=== PATIENT | male | born 2000 | race African-American/Black ===

== ENCOUNTER 2018-01-23 13:15 | Emergency (ER) | payer OTHER, BC | END 2018-01-23 16:01 | disposition home or self-care (01) | LOC: ER 13:15 | DX: M54.5 Low back pain (principal); M54.2 Cervicalgia; V43.52XA Car driver injured in collision with other type car in traffic accident, initial encounter; Y93.89 Activity, other specified; Y92.488 Other paved roadways as the place of occurrence of the external cause; Y99.8 Other external cause status | CPT/HCPCS: 99283 ==

== ENCOUNTER 2018-11-28 08:17 | Emergency (ER) | payer BC, OTHER ==
[~2018-11-28] VITALS: Ht 182.9 cm; Wt 125.6 kg
[~2018-11-28 08:17] MED LIST: CYCL10TA2 PO; IBUP-1007 PO
[2018-11-28 08:26] VITALS: BP 158/85
[2018-11-28] MEDS ORDERED: LIDOCAINE WITH 8.4% SOD BICARB 3 ML DISP.SYRIN. INJ ONE (08:30)
[2018-11-28] MEDS ORDERED: DIPHTH,PERTUSS(ACELL),TET TOX 0.5 ML DISP.SYRIN. VAX IM ONE (08:45)
--- NOTE | 2018-11-28 09:05 | PHYS DOC ---
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 Patient is left-handed. Review of Systems Review of Systems Constitutional: Denies fever or chills [] Musculoskeletal: Denies back pain or joint pain [] Integument: right index finger laceration Neurologic: Denies headache, focal weakness or sensory changes [] All other systems were reviewed and found to be within normal limits, except as documented in this note. Current Medications Current Medications Current Medications Medications (Trade) Dose Ordered Sig/Charlie Start Time Stop Time Status Last Admin Dose Admin Diphtheria/ Tetanus/Acell Pertussis (Boostrix) 0.5 ml ONCE ONCE 11/28/18 08:45 11/28/18 08:46 DC Lidocaine/Sodium Bicarbonate (Buffered Lidocaine 1%) 3 ml 1X ONCE 11/28/18 08:30 11/28/18 08:31 DC 11/28/18 08:35 3 ML Allergies Allergies Allergies Coded Allergies Type Severity Reaction Last Updated Verified No Known Drug Allergies 01/23/18 No Physical Exam Physical Exam Constitutional: Well developed, well nourished, no acute distress, non-toxic appearance. [] Skin: Right index finger fingertip medial aspect with a C-shape laceration approx. 2 cm laceration is still bleeding. There is no obvious tendon involvem ent. Full range of motion to the right index finger. Adequate radius sensation to the right index finger. +2 right radial pulse. Cap refill less than 2 seconds the right index finger. Back: No tenderness, no CVA tenderness. [] Extremities: No tenderness, no cyanosis, no clubbing, ROM intact, no edema. [] Neurologic: Alert and oriented X 3, normal motor function, normal sensory function, no focal deficits noted. [] Psychologic: Affect normal, judgement normal, mood normal. [] Current Patient Data Vital Signs Vital Signs Date Time Temp Pulse Resp B/P (MAP) Pulse Ox O2 Delivery O2 Flow Rate FiO2 11/28/18 08:26 98.8 88 18 158/85 (109) 100 Room Air 98.8 EKG EKG [] Radiology/Procedures Radiology/Procedures Laceration/Wound Repair Wound Location: Right index finger Wound's Depth, Shape: C Wound Length (cm): Approximately 2 cm Wound Explored: clean Irrigated w/ Saline (ccs): 100 Betadine Prep?: Yes Anesthesia: 1% buffered lidocaine Volume Anesthetic (ccs): Approximately 2 cm Wound Repaired With: Ethilon Suture Size/Type: 5.0/interrupted sutures Number of Sutures: 7 Progress :[Wound was covered with nonstick dressing Course & Med Decision Making Course & Med Decision Making Pertinent Labs and Imaging studies reviewed. (See chart for details) This is a 18-year-old male patient who parents right index finger laceration was closed by me as noted in procedures. Wound care instructions and return precautions provided. Tetanus updated. Dragon Disclaimer Dragon Disclaimer This electronic medical record was generated, in whole or in part, using a voice recognition dictation system. Departure Departure Impression: Primary Impression: Laceration of index finger Disposition: 01 HOME, SELF-CARE Condition: STABLE Referrals: NO PCP (PCP) Follow-up with the ER in 7-10 days for suture removal Patient Instructions: Fingertip Laceration Additional Instructions: you have right index finger laceration that was closed with stitches. Keep the area clean and dry. You can wash her hands. Apply Neosporin to the laceration site twice a day for 7 days. Follow-up with your own doctor or the emergency room in 7-10 days for stitches removal. Monitor the area for any signs of infection including but not limited to increased redness to the area, yellow drainage, odorous drainage from the area and return to the ED or see your doctor if they occur Problem Qualifiers Primary Impression: Laceration of index finger Encounter type: initial encounter Damage to nail status: without damage Foreign body presence: without foreign body Laterality: right Qualified Codes: S61.210A - Laceration without foreign body of right index finger without damage to nail, initial encounter JAMIE TALLEY APRN Nov 28, 2018 09:04
== END 2018-11-28 09:10 | disposition home or self-care (01) ==
LOC: ER 08:17
DX: S61.210A Laceration without foreign body of right index finger without damage to nail, initial encounter (principal); W26.8XXA Contact with other sharp object(s), not elsewhere classified, initial encounter; Y93.89 Activity, other specified; Y92.89 Other specified places as the place of occurrence of the external cause; Y99.0 Civilian activity done for income or pay
CPT/HCPCS: 12001; 90471; 90715; 99283

== ENCOUNTER 2018-12-06 06:20 | Emergency (ER) | payer BC ==
[~2018-12-06] VITALS: Ht 182.9 cm; Wt 125.6 kg
[2018-12-06 06:37] VITALS: BP 169/103
--- NOTE | 2018-12-06 06:46 | PHYS DOC ---
Past Medical History Past Medical History: No Pertinent History Past Surgical History: No Surgical History Alcohol Use: Rarely Drug Use: None Adult General Chief Complaint Chief Complaint: SUTURE/STAPLE REMOVAL HPI HPI Patient is a 18 year old right-handed male who presents for suture removal. Patient had laceration of right index finger on November 28 and treated with 7 sutures in this emergency room. Patient denies pain, fever and chills, drainage of wound. Review of Systems Review of Systems Constitutional: Denies fever or chills [] Eyes: Denies change in visual acuity, redness, or eye pain [] HENT: Denies nasal congestion or sore throat [] Respiratory: Denies cough or shortness of breath [] Cardiovascular: No additional information not addressed in HPI [] GI: Denies abdominal pain, nausea, vomiting, bloody stools or diarrhea [] : Denies dysuria or hematuria [] Musculoskeletal: Denies back pain or joint pain [] Integument: Denies rash or skin lesions [] Neurologic: Denies headache, focal weakness or sensory changes [] Endocrine: Denies polyuria or polydipsia [] All other systems were reviewed and found to be within normal limits, except as documented in this note. Allergies Allergies Allergies Coded Allergies Type Severity Reaction Last Updated Verified No Known Drug Allergies 01/23/18 No Physical Exam Physical Exam Constitutional: Well developed, well nourished, no acute distress, non-toxic appearance. [] HENT: Normocephalic, atraumatic. Eyes: PERRLA, EOMI, conjunctiva normal, no discharge. [] Neck: Normal range of motion, no tenderness, supple, no stridor. [] Cardiovascular:Heart rate regular rhythm, no murmur [] Lungs & Thorax: Bilateral breath sounds clear to auscultation [] Extremities: Right index finger with well healed wound of tip finger without sign of infection, no tenderness, no cyanosis, no clubbing, ROM intact, no e avinash. [] Neurologic: Alert and oriented X 3, normal motor function, normal sensory function, no focal deficits noted. [] Psychologic: Affect normal, judgement normal, mood normal. [] Current Patient Data Vital Signs Vital Signs Date Time Temp Pulse Resp B/P (MAP) Pulse Ox O2 Delivery O2 Flow Rate FiO2 12/06/18 06:37 98.8 66 16 100 Room Air 98.8 EKG EKG [] Radiology/Procedures Radiology/Procedures [] Course & Med Decision Making Course & Med Decision Making Evaluation of patient in ER showed 18-year-old male patient presented to ER for suture removal of right index finger that was placed on November 28 in this emergency room. 7 stitches was removed by RAGMAN without problem. Dragon Disclaimer Dragon Disclaimer This electronic medical record was generated, in whole or in part, using a voice recognition dictation system. Departure Departure Impression: Primary Impression: Encounter for removal of sutures Disposition: HOME, SELF-CARE (At 0645) Condition: STABLE Referrals: NO PCP (PCP) Patient Instructions: Suture Removal ANTOLIN KWON MD Dec 06, 2018 06:46
== END 2018-12-06 06:47 | disposition home or self-care (01) ==
LOC: ER 06:20
DX: S61.210D Laceration without foreign body of right index finger without damage to nail, subsequent encounter (principal); X58.XXXD Exposure to other specified factors, subsequent encounter
CPT/HCPCS: 99281; 99282